=== PATIENT | female | born 1955 | race Caucasian/White ===

== ENCOUNTER → 2024-03-24 07:01 | Outpatient (REF) | payer MEDICARE, SELFPAY | LOC: WDC 07:01 | PROVIDERS: ATTENDING PHYSICIAN Physician Assistant | DX: Z12.31 Encounter for screening mammogram for malignant neoplasm of breast (principal) | CPT/HCPCS: 77063; 77067 ==

== ENCOUNTER → 2024-08-20 06:27 | Day surgery (SDC) | payer MEDICARE, SELFPAY | LOC: GI 06:27 | PROVIDERS: ATTENDING PHYSICIAN Internal Medicine; FAMILY PHYSICIAN Physician Assistant | DX: Z12.11 Encounter for screening for malignant neoplasm of colon (principal); K57.30 Diverticulosis of large intestine without perforation or abscess without bleeding; K64.9 Unspecified hemorrhoids; D12.3 Benign neoplasm of transverse colon; K62.1 Rectal polyp; Z86.0101 Personal history of adenomatous and serrated colon polyps | CPT/HCPCS: 45380; 88305 ==

== ENCOUNTER → 2025-03-10 08:54 | Outpatient (REF) | payer OTHER, SELFPAY | LOC: RAD 08:54 | PROVIDERS: ATTENDING PHYSICIAN Nurse Practitioner Family; FAMILY PHYSICIAN Physician Assistant | DX: E34.9 Endocrine disorder, unspecified (principal) | CPT/HCPCS: 78071; A9500 ==

== ENCOUNTER → 2025-03-12 14:16 | Outpatient (REF) | payer OTHER, SELFPAY | LOC: RAD 14:16 | PROVIDERS: ATTENDING PHYSICIAN Nurse Practitioner Family; FAMILY PHYSICIAN Physician Assistant | DX: E34.9 Endocrine disorder, unspecified (principal) | CPT/HCPCS: 76536 ==

== ENCOUNTER → 2025-03-25 07:05 | Outpatient (REF) | payer OTHER, SELFPAY | LOC: WDC 07:05 | PROVIDERS: ATTENDING PHYSICIAN Physician Assistant | DX: Z12.31 Encounter for screening mammogram for malignant neoplasm of breast (principal) | CPT/HCPCS: 77063; 77067 ==

== ENCOUNTER → 2025-03-31 09:51 | Outpatient (REF) | payer OTHER, SELFPAY | LOC: RAD 09:51 | PROVIDERS: ATTENDING PHYSICIAN Nurse Practitioner Family; FAMILY PHYSICIAN Physician Assistant | DX: Z13.820 Encounter for screening for osteoporosis (principal); E34.9 Endocrine disorder, unspecified; Z78.0 Asymptomatic menopausal state; M85.89 Other specified disorders of bone density and structure, multiple sites | CPT/HCPCS: 77080 ==

== ENCOUNTER → 2025-05-19 07:17 | Outpatient (REF) | payer OTHER, SELFPAY ==
[2025-05-19 07:47] VITALS: BP 149/75; BP_SYST 68
== END ==
LOC: RADI 07:17
PROVIDERS: ATTENDING PHYSICIAN Nurse Practitioner Family; FAMILY PHYSICIAN Physician Assistant
DX: E04.2 Nontoxic multinodular goiter (principal)
CPT/HCPCS: 10005; 10006; 88173

== ENCOUNTER 2025-08-17 06:24 | Day surgery (SDC) | payer OTHER, SELFPAY ==
[2025-07-19 08:56] LABS: Hematocrit 45.1 % (37.0-47.0); Hemoglobin 15.0 g/dL (12.0-16.0); INR 0.94; Mean Corp Hgb Conc. 33.3 g/dL (33.0-37.0); Mean Corpuscular Volume 91.9 fL (81.0-99.0); PT 12.9 Sec (11.4-14.6); Platelet Count 342 10^3/uL (130-400); Red Cell Dist. Width 12.3 % (11.5-14.5)
[2025-07-19 08:57] LABS: APTT 27.2 Sec (23.4-35.0)
[2025-07-19 09:46] LABS: ALT (SGPT) 21 U/L (0-35); AST (SGOT) 24 U/L (14-36); Albumin 4.6 g/dl (3.5-5.0); Alkaline Phosphatase 92 U/L (38-126); Blood Urea Nitrogen 14 mg/dl (7-17); Calcium 10.5 mg/dl (8.4-10.2); Carbon Dioxide 28 mmol/L (22-30); Chloride 106 mmol/L (98-107); Glucose 90 mg/dl (70-99); Potassium 4.6 mmol/L (3.5-5.1); Sodium 140 mmol/L (135-145); Total Protein 7.5 g/dl (6.3-8.2); eGFR > 60.00
[2025-07-19 13:45] VITALS: BMI 30.6
[2025-08-17] VITALS (8 sets, daily range): BP systolic 117–153; BP diastolic 61–80; BMI 30.6
[2025-08-17] MEDS: NEURONTIN 300 MG PO (09:24)
[2025-08-17] MEDS: TYLENOL 1000 MG PO (09:24)
[2025-08-17] MEDS: HEPARIN 5000 UNITS SC (09:25)
[2025-08-17] MEDS: NORMOSOL-R/PLASMALYTE-A 1000 IV (09:26)
[2025-08-17 10:36] LABS: Turbo PTH 77.5 pg/ml (14.5-75.2)
[2025-08-17 11:49] LABS: Turbo PTH 65.0 pg/ml (14.5-75.2)
--- NOTE | 2025-08-17 11:56 | OR.RPT ---
Operative Report
Operative Report
Date of Operation: August 17, 2025
Preoperative Diagnosis: Parathyroid hyperparathyroidism - E210
Postoperative Diagnosis: Same
Surgeon: Ibrahima Tucker M.D.
Operation: Neck exploration, Right Inferior Parathyroidectomy - 70365
Anesthesia: GET
Estimated Blood Loss: 10 cc
Drains: None
Specimen: Right Inferior neck nodule, rule out parathyroid adenoma
Complications: None
Procedure:
The patient was taken to the operating room and placed in the usual supine position. After adequate general endotracheal anesthesia was established, the patient's neck was extended, prepped, and draped in the typical sterile fashion. A 4 cm
transcervical incision was made two fingerbreadths above the sternal notch. The skin incision was made with the #15 blade, and this was taken through the skin into the subcutaneous tissue. The underlying platysma muscle was divided, and subplatysmal
flaps were created superiorly to the thyroid cartilage and inferiorly to the sternal notch. Strap muscles were identified and at the midline.
First, the left side of the neck was explored. The left thyroid lobe was mobilized medially. During this process, the left recurrent laryngeal nerve was identified and preserved throughout the surgery. The normal-appearing left inferior parathyroid
gland was identified and preserved. There was no clear left superior parathyroid gland.
Next, attention was turned to the patient's right side of the neck. The right thyroid lobe was mobilized medially. During this process, the right recurrent laryngeal nerve was identified and preserved throughout the surgery. The right lower neck
nodule was identified and noted to be enlarged, excised, and sent to the pathology department, which showed a hypercellular parathyroid gland. The intraoperative PTH levels normalized.
After obtaining adequate hemostasis, the strap muscles were reapproximated with #3-0 Vicryl in a running fashion. The platysma muscle was reapproximated with #3-0 Vicryl in an interrupted fashion, and the skin was approximated with #4-0 Monocryl in
a running subcuticular fashion. The Steri-Strips and sterile dressings were placed. The patient tolerated the procedure well. The final instrument, needle, and sponge counts were correct. The patient was extubated and transferred to the PACU.
== END 2025-08-17 13:16 | disposition home or self-care (01) ==
LOC: SDS 06:24
PROVIDERS: ATTENDING PHYSICIAN Surgery; FAMILY PHYSICIAN Physician Assistant
DX: E21.2 Other hyperparathyroidism (principal)
CPT/HCPCS: 60500; 80053; 83970; 85027; 85610; 85730; 88305; 88331; 88342; 93005